=== PATIENT | female | born 1945 | race Caucasian/White ===

== ENCOUNTER 2019-10-20 11:39 | Inpatient (IN) | payer MEDICARE ==
[~2019-10-20] VITALS: Ht 162.6 cm; Wt 87.1 kg
[2019-10-20] MEDS ORDERED: ONDANSETRON ODT 4 MG TAB.RAPDIS SL ONE (12:00)
--- NOTE | 2019-10-20 12:05 | NUR ---
PT BIB private Ambulance from [facility] legal word processor report pt brought there w/ALOC after consuming vodka and [place]. On exam Pt c/o nausea and left patellar pain, denied SI, HI, and any hallucinations. Pt also denied CP, SOB, dizziness and vomiting, no other complaints, no distress noted.
[2019-10-20] MEDS ORDERED: ONDANSETRON ODT 4 MG TAB.RAPDIS ONE (12:08)
--- NOTE | 2019-10-20 12:10 | NUR ---
Pt medically cleared by DR Fuentes.
[2019-10-20] MEDS ORDERED: OMEP20CA15 PO (12:26)
[2019-10-20] MEDS ORDERED: DOCU100C36 PO (12:26)
[2019-10-20] MEDS ORDERED: FLUT1BLS6 IH (12:26)
[2019-10-20] MEDS ORDERED: SENN-261 PO (12:26)
[2019-10-20] MEDS ORDERED: FLUD0.1T PO (12:26)
[2019-10-20] MEDS ORDERED: LIOT5TAB11 PO (12:26)
[2019-10-20] MEDS ORDERED: MULT-594 PO (12:26)
[2019-10-20] MEDS ORDERED: MELA3TAB41 PO (12:26)
[2019-10-20] MEDS ORDERED: CYAN-51 PO (12:26)
[2019-10-20] MEDS ORDERED: TRAZ-182 PO (12:26)
[2019-10-20] MEDS ORDERED: ALBU8.5H8 INH (12:26)
[2019-10-20] MEDS ORDERED: HYDR-4384 PO (12:26)
[2019-10-20] MEDS ORDERED: ZOLP5TAB8 PO (12:26)
[2019-10-20] MEDS ORDERED: LISI10TA5 PO (12:26)
[2019-10-20] MEDS ORDERED: QUET25TA PO (12:26)
[2019-10-20] MEDS ORDERED: LORA-258 PO (12:26)
[2019-10-20] MEDS ORDERED: FLUC100T8 PO (12:26)
[2019-10-20] MEDS ORDERED: ASCO500T10 PO (12:26)
[2019-10-20] MEDS ORDERED: ALBU18HF2 INH (12:26)
[2019-10-20] MEDS ORDERED: MEMA10TA PO (12:26)
[2019-10-20] MEDS ORDERED: CRAN450C PO (12:26)
[2019-10-20] MEDS ORDERED: SERT50TA PO (12:26)
[2019-10-20] MEDS ORDERED: ATOR10TA PO (12:26)
[2019-10-20] MEDS ORDERED: LEVO100T10 PO (12:26)
[2019-10-20] MEDS ORDERED: PROCHLORPERAZINE EDISYLATE 10 MG/2 ML VIAL ONE (12:35)
--- NOTE | 2019-10-20 12:40 | NUR ---
Pt still c/o nausea, MD notified.
[2019-10-20] MEDS ORDERED: PROCHLORPERAZINE EDISYLATE 10 MG/2 ML VIAL IM ONE (12:45)
--- NOTE | 2019-10-20 12:45 | NUR ---
Called report to CATHERINE Ramires.
[2019-10-20 13:15] VITALS: BP 164/96
--- NOTE | 2019-10-20 13:30 | NUR ---
Admitted a 74 yrs old patient from ER with DX depression and SA, patient is A/O x4 denies any suicidal ideation at this time,patient came from [facility] A/L,total care to all ADLS. noted patient has skin tear on left elbow ,will order for wound care.Dr. Menjivar and dr. Gagnon notified for Admission ,will continue close monitoring.
[2019-10-20] MEDS ORDERED: MAGNESIUM HYDROXIDE 30 ML LIQUID UDC PO PRN (13:45)
[2019-10-20] MEDS ORDERED: ACETAMINOPHEN 325 MG TABLET PO PRN (13:45)
[2019-10-20] MEDS: QUETIAPINE FUMARATE 25 MG TABLET PO SCH ×2 (14:00→16:47)
[2019-10-20 16:00] VITALS: BP 179/89
[2019-10-20] MEDS: CLONAZEPAM 0.5 MG TABLET PO PRN (16:47)
[2019-10-20] MEDS: SERTRALINE HCL 50 MG TABLET PO SCH (16:47)
[2019-10-20] MEDS ORDERED: TRAZODONE 50 MG TABLET PO SCH (18:00)
[2019-10-20] MEDS ORDERED: METOPROLOL TARTRATE 50 MG TABLET PO SCH (18:30)
[2019-10-20] MEDS ORDERED: ALBUTEROL SULFATE 2.5 MG/3 ML NEBU NEB PRN (18:45)
[2019-10-20 18:55] VITALS: BP 120/61
[2019-10-20 20:00] VITALS: BP 156/89
[2019-10-20] MEDS: HYDROCODONE/APAP 5-325MG TABLET PO PRN (20:20)
[2019-10-20] MEDS: TRAZODONE 50 MG TABLET PO SCH (20:20)
[2019-10-20] MEDS: ATORVASTATIN 10 MG TABLET PO SCH (20:21)
[2019-10-20] MEDS: Z GUARD REMEDY PASTE 57 GM TUBE TOP SCH (20:22)
[2019-10-20] MEDS: METOPROLOL TARTRATE 50 MG TABLET PO SCH (20:22)
[2019-10-20] MEDS: TEMAZEPAM 7.5 MG CAPSULE PO PRN (23:50)
[2019-10-21 07:27] LABS: BASOPHILS # (AUTO) 0.1 K/uL (0.0-8.0); BASOPHILS % (AUTO) 0.9 % (0.0-2.0); EOSINOPHILS # (AUTO) 0.2 K/uL (0.0-0.7); EOSINOPHILS % (AUTO) 1.7 % (0.0-7.0); HEMATOCRIT 38.3 % (31.2-41.9); HEMOGLOBIN 12.6 g/dL (10.9-14.3); LYMPHOCYTES # (AUTO) 1.9 K/uL (20.0-40.0); MEAN CORPUSCULAR HEMOGLOBIN 30.5 uug (24.7-32.8); MEAN CORPUSCULAR HGB CONC 33 g/dL (32.3-35.6); MEAN CORPUSCULAR VOLUME 92.8 fL (75.5-95.3); MONOCYTES # (AUTO) 0.8 K/uL (2.0-10.0); MONOCYTES % (AUTO) 8.9 % (0.0-11.0); NEUTROPHILS # (AUTO) 6.1 K/uL (1.8-8.9); NEUTROPHILS % (AUTO) 67.5 % (38.5-71.5); PLATELET COUNT (AUTO) 237 K/uL (179-408); RED BLOOD CELL COUNT(AUTO) 4.13 MIL/uL (3.63-4.92); WHITE BLOOD COUNT (AUTO) 9.1 K/uL (3.8-11.8)
[2019-10-21 07:44] LABS: BILIRUBIN,TOTAL 0.7 mg/dL (0.2-1.0); CREATININE 1.3 mg/dL (0.6-1.3); MAGNESIUM 2.1 mg/dL (1.8-2.4); PHOSPHOROUS 1.9 mg/dL (2.5-4.9); POTASSIUM 4.1 mmol/L (3.5-5.1); TOTAL PROTEIN, SERUM 6.2 g/dL (6.4-8.2)
[2019-10-21 07:50] LABS: THYROID STIMULATING HORMONE 0.111 mIU/mL (0.358-3.740)
[2019-10-21] MEDS: QUETIAPINE FUMARATE 25 MG TABLET PO SCH ×2 (08:01→16:06)
[2019-10-21] MEDS: LIOTHYRONINE SODIUM 5 MCG TABLET PO SCH (08:01)
[2019-10-21] MEDS: LEVOTHYROXINE SODIUM 100 MCG TABLET PO SCH (08:01)
[2019-10-21] MEDS: MULTIVITAMINS,THERAPEUTIC TABLET PO SCH (08:01)
[2019-10-21] MEDS: CYANOCOBALAMIN 1,000 MCG TABLET PO SCH (08:01)
[2019-10-21] MEDS: SERTRALINE HCL 50 MG TABLET PO SCH (08:01)
[2019-10-21] MEDS: ASCORBIC ACID 500 MG TABLET PO SCH (08:01)
[2019-10-21] MEDS: DOCUSATE SODIUM 100 MG CAPSULE PO SCH (08:01)
[2019-10-21 08:04] VITALS: BP 208/108
[2019-10-21] MEDS: METOPROLOL TARTRATE 50 MG TABLET PO SCH ×2 (08:53→21:06)
[2019-10-21] MEDS: Z GUARD REMEDY PASTE 57 GM TUBE TOP SCH ×2 (09:00→21:06)
[2019-10-21] MEDS ORDERED: LISINOPRIL 10 MG TABLET PO SCH (09:00)
[2019-10-21] MEDS ORDERED: SENNOSIDES 1 TABLET PO PRN (09:00)
[2019-10-21] MEDS: HYDROCODONE/APAP 5-325MG TABLET PO PRN ×2 (10:11→18:38)
[2019-10-21 10:17] VITALS: BP 149/83
--- NOTE | 2019-10-21 11:06 | NUR ---
Social Work Family Contact: This flex o writer operator spoke with Jesus ([phone]) to gather collateral and discussed treatment plan and discharge plan. Per Jesus, he stated that he is the DPOA and will fax documents to this flex o writer operator.
--- NOTE | 2019-10-21 11:06 | NUR ---
Social Work Initial Discharge Plan: Patient currently resides at an Assisted Living called [address] [address]; ([phone]). This junior technical writer contacted patient's Jesus ([phone]) who stated that upon discharge he would want patient to return back to her assisted living. Per Jesus, he stated that he is the DPOA and will fax documents to this junior technical writer. This junior technical writer contacted [facility] ([phone]) extension [phone] and spoke with Admin Aidee who stated that admin will call this junior technical writer back. ornamental bronze worker will help coordinate proper discharge with MD and Treatment team.
--- NOTE | 2019-10-21 11:24 | NUR ---
MANPREET Individual Therapy: This marine underwriter met with pt to conduct brief therapy. Pt appeared withdrawn and isolative. Pt has been in her bed with minimal contact with peers or staff. Pt appeared guarded. Pt reported that she feels guilty about her alcohol overdose. Pt was unable to state how she got the alcohol. Pt reported to this marine underwriter that she has been drinking on and off since the age 21. This marine underwriter actively listened and provided emotional support.
--- NOTE | 2019-10-21 11:37 | NUR ---
Social Work Coordination of Care: community action worker spoke with Gwen gtz from [facility] ([phone]) (F:[phone]) requested this junior copywriter to send patient's clinicals for review.
--- NOTE | 2019-10-21 12:21 | NUR ---
Firearms Reprot: Key Ringer completed and submitted a [facility] firearms report for 5150 grave disability certification. A copy of report has been placed in patient chart. Addendum: 10/21/19 at 1313 by MANPREET ADRIAN Firearms Report: Key Ringer completed and submitted a [facility] firearms report for 5150 grave disability certification. A copy of report has been placed in patient chart.
--- NOTE | 2019-10-21 13:14 | NUR ---
Brief Substance Abuse Intervention: Patient was provided with a brief substance abuse intervention and referred to the following substance abuse programs: [facility] Substance Abuse Self-helpline ([phone]); [facility] [address] [place] [address] ([phone]); [facility] [address] [facility] [address] ([phone]); [facility] ([phone]); [facility] ([phone]); [facility] ([phone]); [facility] ([phone]).
[2019-10-21] MEDS: CLONAZEPAM 0.5 MG TABLET PO PRN (14:09)
[2019-10-21] MEDS ORDERED: NEUTRA PHOS PACKET PO ONE (16:15)
[2019-10-21 16:19] VITALS: BP 186/102
[2019-10-21] MEDS: TRAZODONE 50 MG TABLET PO SCH (21:05)
[2019-10-21] MEDS: ATORVASTATIN 10 MG TABLET PO SCH (21:05)
[2019-10-21 21:25] VITALS: BP 166/89
[2019-10-21] MEDS: TEMAZEPAM 7.5 MG CAPSULE PO PRN (23:37)
[2019-10-22] MEDS: MAG HYDROX/AL HYDROX/SIMETH 30 ML LIQUID UDC PO PRN (02:35)
[2019-10-22] MEDS: CLONAZEPAM 0.5 MG TABLET PO PRN (02:50)
--- NOTE | 2019-10-22 03:10 | NUR ---
GPS/ Pt was received in bed, a/ox3, complained of unable to sleep at about 2200 after routine meds were given. PRN sleeping aid administered and noted some effect by 2300. Pt awake and c/o still not able to sleep due to too much noise and room temperature was kept comfortable, quite and light off with door prep open, skin care provided and repositioned. Pt was still not able to sleep at this time PRN Klonopin was given. Continue monitor and anticipating changes and care. Cooperative with all care, but noted pt a bit needy and restless. Q/15mins head count will continue.
[2019-10-22] MEDS: ONDANSETRON ODT 4 MG TAB.RAPDIS SL PRN (05:30)
--- NOTE | 2019-10-22 05:35 | NUR ---
Pt c/o nausea and vomiting with no actual vomit. Called and received order to give pt Zofran 4mg po every 6hrs PRN. Administered at this time and will monitor and endorsed.
--- NOTE | 2019-10-22 07:24 | NUR ---
WOUND CARE CONSULT (LATE ENTRY): PT WAS SEEN FOR LEFT ARM SKIN TEAR ON 10/21/19. RECOMMENDATIONS MADE FOR SKIN PROTECTION AND WOUND CARE. DISCUSSED WITH NURSING STAFF. WILL SEE PRN. IN AGREEMENT WITH PLAN OF CARE.
[2019-10-22 07:30] VITALS: BP 122/95
[2019-10-22] MEDS: ASCORBIC ACID 500 MG TABLET PO SCH (09:26)
[2019-10-22] MEDS: QUETIAPINE FUMARATE 25 MG TABLET PO SCH ×2 (09:26→17:22)
[2019-10-22] MEDS: DOCUSATE SODIUM 100 MG CAPSULE PO SCH (09:26)
[2019-10-22] MEDS: MULTIVITAMINS,THERAPEUTIC TABLET PO SCH (09:27)
[2019-10-22] MEDS: METOPROLOL TARTRATE 50 MG TABLET PO SCH ×2 (09:28→21:31)
[2019-10-22] MEDS: CYANOCOBALAMIN 1,000 MCG TABLET PO SCH (09:28)
[2019-10-22] MEDS: SERTRALINE HCL 50 MG TABLET PO SCH (09:28)
[2019-10-22] MEDS: LIOTHYRONINE SODIUM 5 MCG TABLET PO SCH (09:30)
[2019-10-22] MEDS: LEVOTHYROXINE SODIUM 100 MCG TABLET PO SCH (09:41)
[2019-10-22] MEDS: Z GUARD REMEDY PASTE 57 GM TUBE TOP SCH ×2 (09:45→21:32)
--- NOTE | 2019-10-22 09:59 | NUR ---
MANPREET Family Contact: This curriculum writer received DPOA documents from Jesus ([phone]) and this curriculum writer placed in the chart.
--- NOTE | 2019-10-22 12:45 | NUR ---
MANPREET Coordination of Care: This keno writer spoke with Fernanda gtz ([phone]) ([phone]) who requested clinicals from this keno writer and stated that they have a SNF and would want to transition pt there upon dc. Per Fernanda, she will review clinicals.
--- NOTE | 2019-10-22 12:47 | NUR ---
SW Family Contact: This feature writer spoke with DPOA Jesus ([phone]) and stated that [facility] has a SNF and would want transition her to the SNF. was agreeable with this plan.
[2019-10-22] MEDS: LISINOPRIL 10 MG TABLET PO SCH (13:25)
[2019-10-22 16:00] VITALS: BP 163/87
--- NOTE | 2019-10-22 18:49 | NUR ---
PATIENT NEED ASSISTANCE WITH ADL'S. COMPLIANT WITH MEDICATIONS. SHOWERED AND UP IN CHAIR FOR 4HRS..& 30 MINS AND ATTENDED ACTIVITY IN DAY ROOM.
[2019-10-22 20:39] VITALS: BP 131/80
[2019-10-22] MEDS: ATORVASTATIN 10 MG TABLET PO SCH (21:29)
[2019-10-22] MEDS: TRAZODONE 50 MG TABLET PO SCH (21:29)
[2019-10-23 07:30] VITALS: BP 168/96
[2019-10-23] MEDS: QUETIAPINE FUMARATE 25 MG TABLET PO SCH (09:20)
[2019-10-23] MEDS: DOCUSATE SODIUM 100 MG CAPSULE PO SCH (09:20)
[2019-10-23] MEDS: CYANOCOBALAMIN 1,000 MCG TABLET PO SCH (09:21)
[2019-10-23] MEDS: MULTIVITAMINS,THERAPEUTIC TABLET PO SCH (09:21)
[2019-10-23] MEDS: ASCORBIC ACID 500 MG TABLET PO SCH (09:21)
[2019-10-23] MEDS: SERTRALINE HCL 50 MG TABLET PO SCH (09:21)
[2019-10-23] MEDS: LISINOPRIL 10 MG TABLET PO SCH (09:21)
[2019-10-23] MEDS: LIOTHYRONINE SODIUM 5 MCG TABLET PO SCH (09:22)
[2019-10-23] MEDS: LEVOTHYROXINE SODIUM 100 MCG TABLET PO SCH (09:22)
[2019-10-23] MEDS: METOPROLOL TARTRATE 50 MG TABLET PO SCH ×2 (09:28→20:54)
[2019-10-23] MEDS: Z GUARD REMEDY PASTE 57 GM TUBE TOP SCH ×2 (12:25→20:54)
--- NOTE | 2019-10-23 13:31 | NUR ---
SW Discharge Plan: This proposal lead writer spoke with Fernanda gtz ([phone]) from [facility] who stated that they will transition patient to there [address] [address] ([phone]).
[2019-10-23 16:00] VITALS: BP 133/85
[2019-10-23] MEDS: TRAZODONE 50 MG TABLET PO SCH (20:53)
[2019-10-23] MEDS: ATORVASTATIN 10 MG TABLET PO SCH (20:53)
[2019-10-23] MEDS: QUETIAPINE FUMARATE 100 MG TABLET PO SCH (20:53)
[2019-10-23 21:02] VITALS: BP 141/90
[2019-10-24] MEDS: ASCORBIC ACID 500 MG TABLET PO SCH (08:53)
[2019-10-24] MEDS: DOCUSATE SODIUM 100 MG CAPSULE PO SCH (08:53)
[2019-10-24] MEDS: CYANOCOBALAMIN 1,000 MCG TABLET PO SCH (08:54)
[2019-10-24] MEDS: METOPROLOL TARTRATE 50 MG TABLET PO SCH ×2 (08:54→20:56)
[2019-10-24] MEDS: MULTIVITAMINS,THERAPEUTIC TABLET PO SCH (08:54)
[2019-10-24] MEDS: SERTRALINE HCL 50 MG TABLET PO SCH (08:55)
[2019-10-24] MEDS: QUETIAPINE FUMARATE 25 MG TABLET PO SCH (08:58)
[2019-10-24] MEDS: LISINOPRIL 10 MG TABLET PO SCH (09:02)
[2019-10-24] MEDS: LEVOTHYROXINE SODIUM 100 MCG TABLET PO SCH (09:03)
[2019-10-24] MEDS: LIOTHYRONINE SODIUM 5 MCG TABLET PO SCH (09:03)
[2019-10-24] MEDS: Z GUARD REMEDY PASTE 57 GM TUBE TOP SCH ×2 (09:05→20:57)
[2019-10-24] MEDS: CLONAZEPAM 0.5 MG TABLET PO PRN ×3 (14:06→19:09)
[2019-10-24 15:16] VITALS: BP 137/85
[2019-10-24 20:25] VITALS: BP 135/86
[2019-10-24] MEDS: QUETIAPINE FUMARATE 100 MG TABLET PO SCH (20:55)
[2019-10-24] MEDS: ATORVASTATIN 10 MG TABLET PO SCH (20:55)
[2019-10-24] MEDS: TRAZODONE 50 MG TABLET PO SCH (20:55)
--- NOTE | 2019-10-25 05:56 | NUR ---
GPS/ Received pt up in TV/Day room watching tv with peers. verbally able to make needs know. No behavior and cooperative with care and medications. Denied SI, and no intent for harm. Pt skin care provided and kept dry. No PRN was given during shift, slept comfortable with no noted abnormal. Will continue to monitor.
[2019-10-25] MEDS: CLONAZEPAM 0.5 MG TABLET PO PRN ×2 (06:37→15:21)
[2019-10-25 07:30] VITALS: BP 143/84
[2019-10-25] MEDS: CYANOCOBALAMIN 1,000 MCG TABLET PO SCH (09:17)
[2019-10-25] MEDS: SERTRALINE HCL 50 MG TABLET PO SCH (09:18)
[2019-10-25] MEDS: QUETIAPINE FUMARATE 25 MG TABLET PO SCH (09:18)
[2019-10-25] MEDS: MULTIVITAMINS,THERAPEUTIC TABLET PO SCH (09:18)
[2019-10-25] MEDS: LIOTHYRONINE SODIUM 5 MCG TABLET PO SCH (09:18)
[2019-10-25] MEDS: DOCUSATE SODIUM 100 MG CAPSULE PO SCH (09:18)
[2019-10-25] MEDS: ASCORBIC ACID 500 MG TABLET PO SCH (09:18)
[2019-10-25] MEDS: LEVOTHYROXINE SODIUM 100 MCG TABLET PO SCH (09:18)
[2019-10-25] MEDS: METOPROLOL TARTRATE 50 MG TABLET PO SCH ×2 (09:19→20:45)
[2019-10-25] MEDS: LISINOPRIL 10 MG TABLET PO SCH (09:19)
[2019-10-25] MEDS: Z GUARD REMEDY PASTE 57 GM TUBE TOP SCH ×2 (09:20→20:57)
[2019-10-25 16:00] VITALS: BP 147/77
[2019-10-25 20:24] VITALS: BP 146/90
[2019-10-25] MEDS: QUETIAPINE FUMARATE 100 MG TABLET PO SCH (20:45)
[2019-10-25] MEDS: ATORVASTATIN 10 MG TABLET PO SCH (20:46)
[2019-10-25] MEDS: TRAZODONE 50 MG TABLET PO SCH (20:46)
[2019-10-25] MEDS: TEMAZEPAM 7.5 MG CAPSULE PO PRN (22:18)
--- NOTE | 2019-10-26 03:47 | NUR ---
RECEIVED PATIENT IN BED.WITHDRAWN BUT ABLE TO MAKE NEEDS KNOWN.NEEDY AND C/O INABILITY TO SLEEP AFTER ROUTINE MEDS WAS GIVEN.ASSESSED AND GIVEN TAB RESTORIL WITH GOOD EFFECT. REPOSITIONED Q 2 HOURLY AND PERSONAL HYGIENE MAINTAINED.WILL CONTINUE TO MONITOR.
[2019-10-26] MEDS: MAG HYDROX/AL HYDROX/SIMETH 30 ML LIQUID UDC PO PRN (04:35)
[2019-10-26] MEDS: CLONAZEPAM 0.5 MG TABLET PO PRN ×2 (06:21→16:19)
--- NOTE | 2019-10-26 06:40 | NUR ---
SLEPT FOR 7:30 HOURS.HAS HAD A BED BATH AND REQUESTED FOR KLONIPIN 0.5MG FOR ANXIETY. SAME GIVEN AND REPOSITIONED.
[2019-10-26 07:30] VITALS: BP 141/88
[2019-10-26] MEDS: QUETIAPINE FUMARATE 25 MG TABLET PO SCH (08:22)
[2019-10-26] MEDS: LEVOTHYROXINE SODIUM 100 MCG TABLET PO SCH (08:22)
[2019-10-26] MEDS: DOCUSATE SODIUM 100 MG CAPSULE PO SCH (08:22)
[2019-10-26] MEDS: MULTIVITAMINS,THERAPEUTIC TABLET PO SCH (08:22)
[2019-10-26] MEDS: METOPROLOL TARTRATE 50 MG TABLET PO SCH ×2 (08:22→20:50)
[2019-10-26] MEDS: ASCORBIC ACID 500 MG TABLET PO SCH (08:22)
[2019-10-26] MEDS: SERTRALINE HCL 50 MG TABLET PO SCH (08:22)
[2019-10-26] MEDS: CYANOCOBALAMIN 1,000 MCG TABLET PO SCH (08:22)
[2019-10-26] MEDS: LIOTHYRONINE SODIUM 5 MCG TABLET PO SCH (08:22)
[2019-10-26] MEDS: LISINOPRIL 10 MG TABLET PO SCH (08:23)
[2019-10-26] MEDS: Z GUARD REMEDY PASTE 57 GM TUBE TOP SCH ×2 (08:24→20:55)
[2019-10-26 16:00] VITALS: BP 141/83
[2019-10-26 20:24] VITALS: BP 122/86
[2019-10-26] MEDS: QUETIAPINE FUMARATE 100 MG TABLET PO SCH (20:49)
[2019-10-26] MEDS: ATORVASTATIN 10 MG TABLET PO SCH (20:50)
[2019-10-27] MEDS: TRAZODONE 100 MG TABLET PO SCH ×2 (00:36→20:44)
--- NOTE | 2019-10-27 00:54 | NUR ---
2100 dose of trazodone given late due to pharmacy verification.
[2019-10-27 07:30] VITALS: BP 135/78
[2019-10-27] MEDS: SERTRALINE HCL 50 MG TABLET PO SCH (08:37)
[2019-10-27] MEDS: ASCORBIC ACID 500 MG TABLET PO SCH (08:37)
[2019-10-27] MEDS: QUETIAPINE FUMARATE 25 MG TABLET PO SCH (08:38)
[2019-10-27] MEDS: CYANOCOBALAMIN 1,000 MCG TABLET PO SCH (08:38)
[2019-10-27] MEDS: MULTIVITAMINS,THERAPEUTIC TABLET PO SCH (08:38)
[2019-10-27] MEDS: ONDANSETRON ODT 4 MG TAB.RAPDIS SL PRN (08:38)
[2019-10-27] MEDS: DOCUSATE SODIUM 100 MG CAPSULE PO SCH (08:38)
[2019-10-27] MEDS: LIOTHYRONINE SODIUM 5 MCG TABLET PO SCH (08:38)
[2019-10-27] MEDS: METOPROLOL TARTRATE 50 MG TABLET PO SCH ×2 (08:39→20:45)
[2019-10-27] MEDS: LEVOTHYROXINE SODIUM 100 MCG TABLET PO SCH (08:39)
[2019-10-27] MEDS: LISINOPRIL 10 MG TABLET PO SCH (08:40)
[2019-10-27] MEDS: Z GUARD REMEDY PASTE 57 GM TUBE TOP SCH ×2 (08:40→20:47)
[2019-10-27 16:00] VITALS: BP 105/69
[2019-10-27 20:00] VITALS: BP 100/57
[2019-10-27] MEDS: ATORVASTATIN 10 MG TABLET PO SCH (20:44)
[2019-10-27] MEDS: QUETIAPINE FUMARATE 100 MG TABLET PO SCH (20:45)
--- NOTE | 2019-10-28 04:00 | NUR ---
RECEIVED PATIENT UP IN JAZMINE CHAIR IN THE ACTIVITY ROOM. MOOD IS LOW BUT DENIES SI. COOPERATIVE WITH CARE AND MEDICATIONS. SKIN CARE PROVIDED AND Q2 HOURLY RE POSITIONING. KEPT CLEAN AND DRY. VISUAL CHECKS MADE ON HER FOR SAFETY. WILL CONTINUE TO MONITOR.
--- NOTE | 2019-10-28 06:43 | NUR ---
SLEPT WELL FOR 8 HOURS.HAS BEEN GIVEN A BED BATH.
[2019-10-28 07:30] VITALS: BP 106/62
[2019-10-28] MEDS: SERTRALINE HCL 50 MG TABLET PO SCH (09:29)
[2019-10-28] MEDS: DOCUSATE SODIUM 100 MG CAPSULE PO SCH (09:29)
[2019-10-28] MEDS: MULTIVITAMINS,THERAPEUTIC TABLET PO SCH (09:29)
[2019-10-28] MEDS: CYANOCOBALAMIN 1,000 MCG TABLET PO SCH (09:29)
[2019-10-28] MEDS: ASCORBIC ACID 500 MG TABLET PO SCH (09:29)
[2019-10-28] MEDS: LIOTHYRONINE SODIUM 5 MCG TABLET PO SCH (09:29)
[2019-10-28] MEDS: QUETIAPINE FUMARATE 25 MG TABLET PO SCH (09:29)
[2019-10-28] MEDS: LISINOPRIL 10 MG TABLET PO SCH (09:30)
[2019-10-28] MEDS: METOPROLOL TARTRATE 50 MG TABLET PO SCH ×2 (09:30→21:00)
[2019-10-28] MEDS: LEVOTHYROXINE SODIUM 100 MCG TABLET PO SCH (09:31)
[2019-10-28] MEDS: Z GUARD REMEDY PASTE 57 GM TUBE TOP SCH ×2 (09:32→21:14)
[2019-10-28 16:00] VITALS: BP 97/61
[2019-10-28 20:39] VITALS: BP 103/60
[2019-10-28] MEDS: TRAZODONE 100 MG TABLET PO SCH (20:44)
[2019-10-28] MEDS: QUETIAPINE FUMARATE 100 MG TABLET PO SCH (20:44)
[2019-10-28] MEDS: ATORVASTATIN 10 MG TABLET PO SCH (20:45)
[2019-10-29 07:30] VITALS: BP 117/69
[2019-10-29] MEDS: ASCORBIC ACID 500 MG TABLET PO SCH (08:55)
[2019-10-29] MEDS: DOCUSATE SODIUM 100 MG CAPSULE PO SCH (08:55)
[2019-10-29] MEDS: SERTRALINE HCL 50 MG TABLET PO SCH (08:56)
[2019-10-29] MEDS: CYANOCOBALAMIN 1,000 MCG TABLET PO SCH (08:56)
[2019-10-29] MEDS: QUETIAPINE FUMARATE 25 MG TABLET PO SCH (08:56)
[2019-10-29] MEDS: METOPROLOL TARTRATE 50 MG TABLET PO SCH ×2 (08:57→21:26)
[2019-10-29] MEDS: LIOTHYRONINE SODIUM 5 MCG TABLET PO SCH (08:58)
[2019-10-29] MEDS: LEVOTHYROXINE SODIUM 100 MCG TABLET PO SCH (08:59)
[2019-10-29] MEDS: Z GUARD REMEDY PASTE 57 GM TUBE TOP SCH ×2 (08:59→21:28)
[2019-10-29] MEDS: LISINOPRIL 10 MG TABLET PO SCH (09:00)
[2019-10-29] MEDS: MULTIVITAMINS,THERAPEUTIC TABLET PO SCH (09:04)
--- NOTE | 2019-10-29 14:49 | NUR ---
MANPREET Individual Therapy: This bond underwriter conducted brief counseling. Pt appeared with euthymic mood. Pt was able to express her emotions and stated "I feel guilty about my overdose and I feel embarrassed" and "I will never do such a thing again, I do not want to disappoint my family". Pt denies SI. This bond underwriter actively listened and provided emotional support.
[2019-10-29 16:00] VITALS: BP 107/52
[2019-10-29] MEDS: CLONAZEPAM 0.5 MG TABLET PO PRN (16:57)
--- NOTE | 2019-10-29 18:29 | NUR ---
no aggressive or combative behaviors noted, noted with anxious Behavior, medication given, effective, no acute distress noted, denied suicidal thoughts.
[2019-10-29 20:21] VITALS: BP 110/66
[2019-10-29] MEDS: TRAZODONE 100 MG TABLET PO SCH (21:25)
[2019-10-29] MEDS: QUETIAPINE FUMARATE 100 MG TABLET PO SCH (21:25)
[2019-10-29] MEDS: ATORVASTATIN 10 MG TABLET PO SCH (21:26)
[2019-10-30 07:30] VITALS: BP 134/75
--- NOTE | 2019-10-30 08:31 | NUR ---
Patient received in room, Pt. is AAO x 2-3 with No acute distress noted. Vital signs stable and will continue with care.
[2019-10-30] MEDS: MULTIVITAMINS,THERAPEUTIC TABLET PO SCH (10:17)
[2019-10-30] MEDS: SERTRALINE HCL 50 MG TABLET PO SCH (10:18)
[2019-10-30] MEDS: ASCORBIC ACID 500 MG TABLET PO SCH (10:18)
[2019-10-30] MEDS: CYANOCOBALAMIN 1,000 MCG TABLET PO SCH (10:18)
[2019-10-30] MEDS: LIOTHYRONINE SODIUM 5 MCG TABLET PO SCH (10:18)
[2019-10-30] MEDS: DOCUSATE SODIUM 100 MG CAPSULE PO SCH (10:18)
[2019-10-30] MEDS: QUETIAPINE FUMARATE 25 MG TABLET PO SCH (10:19)
[2019-10-30] MEDS: LISINOPRIL 10 MG TABLET PO SCH (10:19)
[2019-10-30] MEDS: LEVOTHYROXINE SODIUM 100 MCG TABLET PO SCH (10:23)
[2019-10-30] MEDS: METOPROLOL TARTRATE 50 MG TABLET PO SCH ×2 (10:25→20:26)
[2019-10-30] MEDS: Z GUARD REMEDY PASTE 57 GM TUBE TOP SCH ×2 (10:25→20:33)
[2019-10-30] MEDS: CLONAZEPAM 0.5 MG TABLET PO PRN (17:37)
--- NOTE | 2019-10-30 18:32 | NUR ---
Patient in activity room at this time, vital signs stable, patient compliant throughout shift with care and medication therapy. Pt. denies and SI or feeling depressed; stated " I am very happy that i am going home tomorrow". Patient took all due medications, noted participating in group therapy, no Psychotic behavioral issues noted. Patient is with min-max assist with adls, needs attended, safety measures in place and will continue with care.
[2019-10-30 20:00] VITALS: BP 103/50
--- NOTE | 2019-10-30 20:00 | NUR ---
received patient in the day room room watching TV. she is noted A/O x 3. she is calm and pleasant upon approached. patient is able to verbalized feeling. Pt is agreeable with her impending discharged tomorrow morning to [facility]. She denies SI. She is able to CFS. V/S stable. patient was given PO fluids and snacks. safety and fall precaution in place. will continue to monitor.
[2019-10-30] MEDS: TRAZODONE 100 MG TABLET PO SCH (20:25)
[2019-10-30] MEDS: QUETIAPINE FUMARATE 100 MG TABLET PO SCH (20:25)
[2019-10-30] MEDS: ATORVASTATIN 10 MG TABLET PO SCH (20:25)
[2019-10-31 07:30] VITALS: BP 131/85
--- NOTE | 2019-10-31 08:05 | NUR ---
Social Work Discharge Note: Patient will be discharged to [facility] [address] [place] [address] ([phone]) ext [phone] via ambulance at 12PM. This typewriter aligner spoke with Susanne Hernandez ([phone]) who stated that patient is accepted back today. Patients Jesus WRIGHT ([phone]) is aware and agreeable with discharge plan. Patient is alert and oriented x2-3 and is not able to plan for self-care at this time but is willing to accept care provided for his at the facility. Patient denies suicidal or homicidal ideation. Patient is aware and agreeable with discharge plans. Patient will follow-up with (psychiatrist) Dr. lynn and (drop count associate) Dr. Wong at [facility]. Patient was provided referrals to the following substance abuse programs: [facility] Substance Abuse Self-helpline ([phone]); [facility] [address] [place] [address] ([phone]); [facility] [address] [facility] [address] ([phone]); [facility] ([phone]); [facility] ([phone]); [facility] ([phone]); [facility] ([phone]). Patient presented with euthymic and congruent affect.
[2019-10-31] MEDS: ASCORBIC ACID 500 MG TABLET PO SCH (08:32)
[2019-10-31] MEDS: METOPROLOL TARTRATE 50 MG TABLET PO SCH (08:32)
[2019-10-31] MEDS: SERTRALINE HCL 50 MG TABLET PO SCH (08:32)
[2019-10-31] MEDS: LIOTHYRONINE SODIUM 5 MCG TABLET PO SCH (08:33)
[2019-10-31] MEDS: QUETIAPINE FUMARATE 25 MG TABLET PO SCH (08:33)
[2019-10-31] MEDS: CYANOCOBALAMIN 1,000 MCG TABLET PO SCH (08:33)
[2019-10-31] MEDS: MULTIVITAMINS,THERAPEUTIC TABLET PO SCH (08:33)
[2019-10-31] MEDS: DOCUSATE SODIUM 100 MG CAPSULE PO SCH (08:33)
[2019-10-31 08:34] VITALS: BP 131/83
[2019-10-31] MEDS: LISINOPRIL 10 MG TABLET PO SCH (08:34)
[2019-10-31] MEDS: Z GUARD REMEDY PASTE 57 GM TUBE TOP SCH (08:45)
[2019-10-31] MEDS: LEVOTHYROXINE SODIUM 100 MCG TABLET PO SCH (09:02)
--- NOTE | 2019-10-31 11:56 | NUR ---
Gps/Drywall Hanger Framer- Called [facility], report was given to Nurse Floyd. Patient was well informed of her discharged plan. Patient's Jesus was also informed of her dc. plan .
--- NOTE | 2019-10-31 12:00 | NUR ---
Gps/Health And Physical Education Professor- Forearms with patches of small brusings , left ac w/ skin tear , healing fairly well, site cleansed with NS, lilian lazo, bandaid applied. Linear redness to groin. Kept skin dry and clean, better, z-guard applied.Kept skin dry and clean
[2019-10-31] MEDS: CLONAZEPAM 0.5 MG TABLET PO PRN (12:10)
--- NOTE | 2019-10-31 12:44 | NUR ---
Gps/Poli CASE from [facility] called, wants to know dc. plan, as per 's request ,informed at this time no dc. date yet Addendum: 10/31/19 at 1528 by CITLALLI GALICIA LVN charted on a wrong patient, Error
--- NOTE | 2019-10-31 13:45 | NUR ---
Gps/Pouch Making Machine Operator- Linear redness to left groin and right groin linear redness resolved, , keeping skin dry and clean, z-guard applied .Skin tear left forearm scab.
--- NOTE | 2019-10-31 15:22 | NUR ---
Gps/Filenet P8 Developer- Ambulance in to supervisor opening and picking patient, all belongings given back to patient. Discharged in good spirit, denies any discomfort, no complaints noted.
== END 2019-10-31 15:26 | DRG 885 ==
LOC: ER 11:39 → GPS 12:47
PROVIDERS: ADMIT Psychiatry & Neurology Psychiatry; ATTEND Internal Medicine
DX: F33.2 Major depressive disorder, recurrent severe without psychotic features (principal); J44.9 Chronic obstructive pulmonary disease, unspecified; K21.9 Gastro-esophageal reflux disease without esophagitis; Z79.899 Other long term (current) drug therapy; Z96.643 Presence of artificial hip joint, bilateral; E03.9 Hypothyroidism, unspecified; G89.4 Chronic pain syndrome; E66.9 Obesity, unspecified; F03.90 Unspecified dementia, unspecified severity, without behavioral disturbance, psychotic disturbance, mood disturbance, and anxiety; I10 Essential (primary) hypertension; Z87.440 Personal history of urinary (tract) infections; E78.5 Hyperlipidemia, unspecified; M19.90 Unspecified osteoarthritis, unspecified site; Z68.33 Body mass index [BMI] 33.0-33.9, adult; J45.909 Unspecified asthma, uncomplicated; F29 Unspecified psychosis not due to a substance or known physiological condition; F10.21 Alcohol dependence, in remission; Z91.5 Personal history of self-harm; T40.2X2D Poisoning by other opioids, intentional self-harm, subsequent encounter
CPT/HCPCS: 36415; 83735; 84100; 84443; 85025; A4663; J0780; Q0162